=== PATIENT | male | born 1970 | race Caucasian/White ===

== ENCOUNTER → 2020-12-09 | Outpatient (CLI) | payer MEDICARE, OTHER | LOC: EMI 09:13 | DX: F09 Unspecified mental disorder due to known physiological condition (principal) | CPT/HCPCS: 70551 ==

== ENCOUNTER → 2021-04-14 | Outpatient (CLI) | payer MEDICARE, OTHER | LOC: NM 03-07 09:00 → HEART 5 03-07 09:00 → ECHO 03-07 09:00 → NM 03-07 10:00 | DX: R00.2 Palpitations (principal); R07.9 Chest pain, unspecified; R06.02 Shortness of breath | CPT/HCPCS: ECHO; 93306 ==

== ENCOUNTER → 2021-05-10 | Outpatient (CLI) | payer MEDICARE, OTHER | LOC: NM 09:54 | DX: R06.02 Shortness of breath (principal); R00.2 Palpitations | CPT/HCPCS: 78452; 93017; A9502; J2785 ==

== ENCOUNTER → 2021-08-05 | Outpatient (CLI) | payer MEDICARE, OTHER | LOC: EXRD 08-01 14:00 | DX: M79.604 Pain in right leg (principal); M79.605 Pain in left leg; L97.319 Non-pressure chronic ulcer of right ankle with unspecified severity | CPT/HCPCS: 93922; 93925 ==